=== PATIENT | male | born 1945 | race Caucasian/White ===

== ENCOUNTER 2017-11-08 15:03 | Day surgery (SDC) | payer MEDICARE, OTHER ==
[~2017-11-08 15:03] MED LIST: LACTATED RINGER'S 1,000 ML IV*
[2017-11-08 15:57] LABS: ADD MAN DIFF? NO
[2017-11-08 15:59] LABS: BASOPHILS % 0.4 % (0.0-2.0); EOSINOPHILS # 0.1 10^3/ul (0.0-0.5); EOSINOPHILS % 1.3 % (0.0-7.0); HEMATOCRIT 40.9 % (42.0-52.0); LYMPHOCYTES # 1.1 10^3/ul (0.8-2.9); LYMPHOCYTES % 24.6 % (15.0-51.0); MEAN CORPUSCULAR HEMOGLOBIN 28.8 pg (29.0-33.0); MEAN CORPUSCULAR HGB CONC 34.2 g/dl (32.0-37.0); MEAN CORPUSCULAR VOLUME 84.2 fl (82.0-101.0); MONOCYTE # 0.3 10^3/ul (0.3-0.9); MONOCYTES % 6.7 % (0.0-11.0); NEUTROPHIL # 3.1 10^3/ul (1.6-7.5); PLATELET COUNT 188 10^3/UL (140-415); RED BLOOD COUNT 4.86 10^6/ul (4.70-6.10); RED CELL DISTRIBUTION WIDTH 13.7 % (11.5-14.5)
[2017-11-08 15:59] LABS: WHITE BLOOD COUNT 4.6 10^3/ul (4.8-10.8)
[2017-11-08 16:03] LABS: ADD UMIC NO; UR ASCORBIC ACID NEGATIVE (NEGATIVE); UR BILIRUBIN (Dip) NEGATIVE (NEGATIVE); UR BLOOD (Dip) NEGATIVE (NEGATIVE); UR CLARITY CLEAR (CLEAR); UR COLOR YELLOW (YELLOW); UR GLUCOSE (Dip) NEGATIVE (NEGATIVE); UR KETONES (Dip) TRACE mg/dL (NEGATIVE); UR LEUKOCYTE ESTERASE (Dip) NEGATIVE Leu/ul (NEGATIVE); UR NITRITE (Dip) NEGATIVE (NEGATIVE); UR SPECIFIC GRAVITY (Dip) 1.017 (1.003-1.030); UR TOTAL PROTEIN (Dip) NEGATIVE (NEGATIVE); UR UROBILINOGEN (Dip) NEGATIVE (NEGATIVE)
[2017-11-08 16:19] LABS: PROTIME 12.2 Sec (11.9-14.9)
[2017-11-08 16:20] LABS: PARTIAL THROMBOPLASTIN TIME 27.9 Sec (25.0-35.0)
[2017-11-08 16:28] LABS: ALANINE AMINOTRANSFERASE 39 IU/L (13-69); ALBUMIN 4.3 g/dl (3.3-4.9); ALBUMIN/GLOBULIN RATIO 1.16; ALKALINE PHOSPHATASE 104 IU/L (42-121); ANION GAP 15 (8-16); ASPARTATE AMINO TRANSFERASE 29 IU/L (15-46); BILIRUBIN,INDIRECT 0.5 mg/dl (0-1.1); BILIRUBIN,TOTAL 0.5 mg/dl (0.2-1.3); CARBON DIOXIDE 25 mmol/L (21-31); CHLORIDE 104 mmol/L (97-110); GLUCOSE 101 mg/dl (70-220)
[2017-11-08 16:36] LABS: BLOOD UREA NITROGEN 12 mg/dl (7-20); CALCIUM 9.4 mg/dl (8.4-10.2); CREATININE 0.85 mg/dl (0.61-1.24); POTASSIUM 3.8 mmol/L (3.5-5.1); SODIUM 140 mmol/L (135-144)
[2017-11-08] MEDS ORDERED: BUPIVACAINE 0.5% (SDV) 30 ML INJ (17:29)
[2017-11-08] MEDS ORDERED: LIDOCAINE 1% (MPF) 30 ML INJ (17:29)
[2017-11-08] MEDS ORDERED: FENTAnyl 50 MCG/ML VIAL (17:30)
[2017-11-08] MEDS ORDERED: PROPOFOL 20 ML ×2 (17:34→17:55)
[2017-11-08] MEDS ORDERED: METOCLOPRAMIDE 10 MG INJ (17:34)
[2017-11-08] MEDS ORDERED: ONDANSETRON 4 MG INJ (17:34)
[2017-11-08] MEDS ORDERED: MIDAZOLAM 1 MG/ML 2 ML INJ (17:34)
[2017-11-08] MEDS ORDERED: CEFAZOLIN 1 GM INJ (17:34)
[2017-11-08] MEDS ORDERED: BUPIVACAINE 0.25% (MPF) 30 ML INJ (17:50)
[2017-11-08] MEDS ORDERED: EPHEDrine SULFATE 50 MG/5 ML SYG (17:55)
[2017-11-08] MEDS ORDERED: ROCURONIUM 50 MG INJ (17:55)
[2017-11-08] MEDS ORDERED: OXYCODONE/ACETAMINOPHEN (5/325) TAB PO ×2 (18:00)
[2017-11-08] MEDS ORDERED: HYDROmorphONE (0.2 MG/ML) 10ML SYG IV ×3 (18:00)
[2017-11-08] MEDS ORDERED: ONDANSETRON 4 MG INJ IV (18:00)
[2017-11-08] MEDS: BUPIVACAINE 0.25% (MPF) 30 ML INJ INJ (18:06)
[2017-11-08] MEDS ORDERED: GLYCOPYRROLATE 0.4 MG INJ (18:24)
== END 2017-11-08 19:42 | disposition home or self-care (01) ==
LOC: SDS 15:03
DX: G56.01 Carpal tunnel syndrome, right upper limb (principal); M24.541 Contracture, right hand
CPT/HCPCS: 26520; 71045; 80053; 81003; 85025; 85610; 85730